=== PATIENT | male | born 1990 | race Caucasian/White ===

== ENCOUNTER 2018-09-11 08:40 | Emergency (ER) | payer OTHER ==
[~2018-09-11] VITALS: Ht 190.5 cm; Wt 70.3 kg
[2018-09-11 12:30] VITALS: BP 145/89
== END 2018-09-11 12:30 | disposition home or self-care (01) ==
LOC: ER 08:40
DX: H61.21 Impacted cerumen, right ear (principal); Z88.1 Allergy status to other antibiotic agents